=== PATIENT | male | born 1955 | race Caucasian/White ===

== ENCOUNTER 2018-01-12 15:30 | Observation (INO) | payer OTHER ==
[2018-01-12 15:35] VITALS: BMI 26.6
--- NOTE | 2018-01-12 15:53 | ED PDOC ---
Arrival/HPI - General Chief Complaint: Chest Pain Time Seen by Provider: 01/12/18 15:49 - History of Present Illness Narrative History of Present Illness (Text): 01/12/18 15:54 62 m with hx htn presents to the Emergency department with chief complaint of palpitations and shortness of breath. Patient states that his symptoms started approx 8am this morning and have been persistent throughout the day. Patient reports some associated lightheadedness but no chest pain/discomfort, no diaphoresis, no nausea. Patient states he recently returned from a trip to [facility]. No wheezing, no cough, no fever, no abdominal pain. Past Medical History - Infectious Disease Hx of Infectious Diseases: None - Tetanus Immunization Tetanus Immunization: Unknown - Cardiac Hx Hypertension: Yes - HEENT Hx HEENT Disorder: Yes (wears eyeglasses) - Musculoskeletal/Rheumatological Hx Falls: No - Psychiatric Hx Psychophysiologic Disorder: No Hx Substance Use: No - Past Surgical History Past Surgical History: No Previous - Suicidal Assessment Feels Threatened In Home Enviroment: No Family/Social History Family/Social History: No Known Family HX, Other (fhx negative for early myocardial infarction) Smoking Status: Light Smoker < 10 Cigarettes Daily Hx Alcohol Use: No (RECENT DETOX [place]) Hx Substance Use: No Hx Substance Use Treatment: No Allergies/Home Meds Allergies/Adverse Reactions: Allergies No Known Allergies Allergy (Verified 01/12/18 15:51) Home Medications: Home Meds Medication Instructions Recorded Confirmed RX: Losartan [Cozaar] 50 mg PO DAILY 07/27/11 01/12/18 amLODIPine [Norvasc] 10 mg PO DAILY 01/12/18 01/12/18 Review of Systems - Physician Review All systems were reviewed & negative as marked: Yes Physical Exam - Physical Exam Narrative Physical Exam (Text): 01/12/18 15:56 Gen: VS reviewed, alert, well developed, well nourished, nontoxic, mild distress Eye: EOMI, PERRL Neck: no JVD, supple, no adenopathy CV: rapid rate, regular rhythm, no rubs,no murmur, S1, S2 Pulm: no distress, clear to auscultation, no wheeze, no rhonchi, breath sounds equal, no rales Abd: soft, nontender, no guarding, no rebound, no rigidity Ext: no edema Skin: good color, no rash, no cyanosis Psych: responds appropriately to questions, normal affect Neuro: oriented x3, CN2-12 intact grossly, motor intact, sensation intact Vital Signs Temp Pulse Resp BP Pulse Ox 01/12/18 15:31 98.3 F 108 H 18 166/93 H 99 Medical Decision Making ED Course and Treatment: 01/12/18 15:58 patient informed to quit smoking, discussion less than 10 minutes 01/12/18 16:59 on repeat exam and discussion patient admits that he drinks alcohol daily, has gone through alcohol withdrawal but never seizures.last drink of alcohol was yesterday. CIWA score at this time = 2/3 01/12/18 18:00 on re-eval patient states he feels much better and symptoms have resolved after dose of ativan. 01/12/18 18:[address] dao to the hospitalist service. patient to be admitted for mild alcohol withdrawal. - EKG Interpretation EKG Interpretation (Text): 01/12/18 15:56 [id number]: sinus tachycardia at 111 bpm, nml qrs, nml axis, lvh, Interpreted by ED Physician: Yes Disposition/Present on Arrival - Present on Arrival Any Indicators Present on Arrival: No History of DVT/PE: No History of Uncontrolled Diabetes: No Urinary Catheter: No History of Decub. Ulcer: No History Surgical Site Infection Following: None - Disposition Have Diagnosis and Disposition been Completed?: Yes Diagnosis: Alcohol withdrawal syndrome Disposition: HOSPITALIZED Disposition Time: 18:24 Patient Plan: Observation Condition: STABLE Forms: [employer] ([place])
[2018-01-12] MEDS: Sodium Chloride 0.9% 1,000 ML IV SCH ×2 (16:17→23:57)
[2018-01-12 16:24] LABS: BASO # 0.03 K/mm3 (0.0-2.0); BASO % 0.6 % (0.0-3.0); EOS % 0.2 % (1.5-5.0); GRAN # 3.8 (1.4-6.5); GRAN % 70.5 % (50.0-68.0); HEMOGLOBIN 13.3 g/dL (14.0-18.0); LYMPH % 18.8 % (22.0-35.0); MEAN CELL VOLUME 94.1 fl (80.0-105.0); MEAN CORPUSCULAR HEMOGLOBIN 32.8 pg (25.0-35.0); MEAN CORPUSCULAR HGB CONC 34.8 g/dl (31.0-37.0); MEAN PLATELET VOLUME 9.6 fl (7.0-11.0); MONO # 0.5 (0.1-0.6); MONO % 9.9 % (1.0-6.0); RBC 4.06 10^6/uL (3.5-6.1); RED CELL DISTRIBUTION WIDTH 13.4 % (11.5-14.5); WHITE BLOOD COUNT 5.4 10^3/uL (4.5-11.0)
[2018-01-12 16:35] LABS: ALB/GLOB RATIO 1.2 (1.1-1.8); ALBUMIN 4.7 g/dL (3.0-4.8); ALT/SGPT 191 U/L (7-56); AST/SGOT 583 U/L (17-59); BLOOD UREA NITROGEN 23 mg/dL (7-21); CALCIUM 9.7 mg/dL (8.4-10.5); GFR NON-AFRICAN AMERICAN > 60
[2018-01-12 16:47] LABS: TROPONIN I 0.03 ng/mL
[2018-01-12 16:49] LABS: INR 0.95; PARTIAL THROMBOPLASTIN TIME 25.5 Seconds (25.1-36.5); PROTHROMBIN TIME 10.8 SECONDS (9.4-12.5)
--- NOTE | 2018-01-12 17:42 | CT ---
Date of service: 01/12/2018 PROCEDURE: CT Chest with contrast (Pulmonary Angiogram) HISTORY: pulmonary embolism COMPARISON: None available. TECHNIQUE: Axial computed tomography images were obtained of the chest in the pulmonary arterial phase of enhancement. Coronal and sagittal reformatted images were created and reviewed. Intravenous contrast dose: Radiation dose: Total exam DLP = 474.46 mGy-cm. This CT exam was performed using one or more of the following dose reduction techniques: Automated exposure control, adjustment of the mA and/or kV according to patient size, and/or use of iterative reconstruction technique. FINDINGS: PULMONARY ARTERIES: Examination is of suboptimal diagnostic quality for evaluation of pulmonary embolism due to missed bolus. Allowing for this, there are no filling defects in the central pulmonary arteries to suggest acute pulmonary embolism. AORTA: No acute findings. No thoracic aortic aneurysm. No aortic atherosclerotic calcification or mural plaque present. LUNGS: The lungs are well inflated and clear. No nodule, mass or pulmonary consolidation. PLEURAL SPACES: No effusion or pneumothorax. HEART: There is mild cardiomegaly. No significant pericardial effusion. LYMPH NODES: No pathologic mediastinal or hilar lymphadenopathy. BONES, CHEST WALL: Within normal limits for the patient's age. No fracture or destructive lesion multilevel degenerative changes in the spine. OTHER FINDINGS: Fatty liver. There is a small sliding hiatal hernia. Mild gynecomastia. IMPRESSION: Suboptimal diagnostic quality due to missed bolus. No CTA evidence for acute central pulmonary embolism. Clear lungs.
[2018-01-12] MEDS ORDERED: Multivitamin (MVI) 10 ML, Thiamine 100 MG, Folic Acid 1 MG in Sodium Chloride 0.9% 1,00... IV ONE (19:13)
--- NOTE | 2018-01-12 20:34 | CP.PCM.HP ---
History of Present Illness - History of Present Illness History of Present Illness: HISTORY & PHYSICAL NOTE FOR HOSPITALIST TEAM Wilian Ariza PGY-1 CC: Chest palpitations since this morning. Resolved upon interview 62 y/o M with PMHx of alcohol abuse, hypertension presents to ED with complaints of palpitations that had resolved by the time he was interviewed. He reports he started feeling the palpitations around 8am this am, without associated chest pain, shortness of breath, diaphoresis, pain radiating to arm, dizziness, nausea or vomiting. He reports that he has had these symptoms several times recently. He reports that he drinks about 1/2 liter of whiskey every day for the past few months and his last drink was last night. He reports that if he doesn't have a drink, he get the shakes. Upon interview, he denies 12 point ROS PMHx: Etoh abuse, HTN, palpitations, anxiety ALL: NKDA PSH: SH: 1/2 L daily of whiskey, 10 cigarettes/day x 20yrs. No drug use FH: Denies PMD: Dr. Presley Pharmacy: [facility] pharmacy Present on Admission - Present on Admission Any Indicators Present on Admission: No Review of Systems - Review of Systems Review of Systems: per HPI Past Patient History - Infectious Disease Hx of Infectious Diseases: None - Tetanus Immunizations Tetanus Immunization: Unknown - Past Social History Smoking Status: Light Smoker < 10 Cigarettes Daily - CARDIAC Hx Hypertension: Yes - HEENT Hx HEENT Problems: Yes (wears eyeglasses) - MUSCULOSKELETAL/RHEUMATOLOGICAL Hx Falls: No - PSYCHIATRIC Hx Psychophysiologic Disorder: No Hx Substance Use: No - SURGICAL HISTORY Hx Surgeries: No Meds Allergies/Adverse Reactions: Allergies Allergy/AdvReac Type Severity Reaction Status Date / Time No Known Allergies Allergy Verified 01/12/18 15:51 Physical Exam - Constitutional Appears: Well, Non-toxic, No Acute Distress - Head Exam Head Exam: ATRAUMATIC, NORMAL INSPECTION - Eye Exam Eye Exam: EOMI, Normal appearance - ENT Exam ENT Exam: Mucous Membranes Moist, Normal Exam - Neck Exam Neck exam: Positive for: Normal Inspection - Respiratory Exam Respiratory Exam: Clear to Auscultation Bilateral, NORMAL BREATHING PATTERN - Cardiovascular Exam Cardiovascular Exam: REGULAR RHYTHM, +S1, +S2 - GI/Abdominal Exam GI & Abdominal Exam: Normal Bowel Sounds, Soft - Rectal Exam Rectal Exam: NORMAL INSPECTION - Extremities Exam Extremities exam: Positive for: normal inspection. Negative for: calf tenderness - Back Exam Back exam: NORMAL INSPECTION - Neurological Exam Neurological exam: Alert, Oriented x3 - Psychiatric Exam Psychiatric exam: Normal Affect, Normal Mood - Skin Skin Exam: Dry, Intact, Warm Results - Vital Signs Recent Vital Signs: Last Vital Signs Temp 98.2 F 01/12/18 18:07 Pulse 102 H 01/12/18 19:38 Resp 18 01/12/18 19:38 BP 143/80 01/12/18 19:38 Pulse Ox 98 01/12/18 19:38 - Labs Result Diagrams: 01/12/18 16:17 01/12/18 16:17 Labs: Laboratory Results - last 24 hr 01/12/18 01/12/18 01/12/18 16:17 16:17 16:17 WBC 5.4 RBC 4.06 Hgb 13.3 L Hct 38.2 L MCV 94.1 MCH 32.8 MCHC 34.8 RDW 13.4 Plt Count 257 MPV 9.6 Gran % 70.5 H Lymph % (Auto) 18.8 L Bowie % (Auto) 9.9 H Eos % (Auto) 0.2 L Baso % (Auto) 0.6 Gran # 3.80 Lymph # (Auto) 1.0 L Bowie # (Auto) 0.5 Eos # (Auto) 0.0 Baso # (Auto) 0.03 PT 10.8 INR 0.95 APTT 25.5 Sodium 139 Potassium 4.2 Chloride 103 Carbon Dioxide 22 Anion Gap 18 BUN 23 H Creatinine 1.1 Est GFR ( Amer) > 60 Est GFR (Non-Af Amer) > 60 Random Glucose 145 H Calcium 9.7 Total Bilirubin 0.6 AST 583 H ALT 191 H Alkaline Phosphatase 117 Troponin I 0.03 D Total Protein 8.4 H Albumin 4.7 Globulin 3.7 Albumin/Globulin Ratio 1.2 TSH 3rd Generation Alcohol, Quantitative 01/12/18 01/12/18 16:17 18:15 WBC RBC Hgb Hct MCV MCH MCHC RDW Plt Count MPV Gran % Lymph % (Auto) Bowie % (Auto) Eos % (Auto) Baso % (Auto) Gran # Lymph # (Auto) Bowie # (Auto) Eos # (Auto) Baso # (Auto) PT INR APTT Sodium Potassium Chloride Carbon Dioxide Anion Gap BUN Creatinine Est GFR ( Amer) Est GFR (Non-Af Amer) Random Glucose Calcium Total Bilirubin AST ALT Alkaline Phosphatase Troponin I Total Protein Albumin Globulin Albumin/Globulin Ratio TSH 3rd Generation 0.79 Alcohol, Quantitative < 10 Assessment & Plan - Assessment and Plan (Free Text) Assessment: 62 y/o M with PMHx of ETOH abuse, HTN admitted for ETOH withdrawal. Plan: ETOH withdrawal Ativan 1mg q1h cristela, 2mg q6h prn Banana bag CIWA protocol Aspiration precautions Seizure precautions Neuro checks NPO Palpitations No EKG changes Trend troponins f/u TSH CTA negative for PE Transaminitis AST/ALT >2:1 Likely secondary to alcohol use f/u abdomen ultrasound Hx of HTN Lopressor IVP q8h Switch to home oral meds when tolerating PPx: Hep/protonix Case seen, examined and discussed with attending physician, Dr. Ray
[2018-01-12] MEDS: Metoprolol 1 mg/ml Inj IVP SCH (22:00)
[2018-01-12] MEDS ORDERED: Influenza Vaccine 60 mcg/0.5 mL SYR (4YR UP) IM ONE (23:09)
[2018-01-12] MEDS ORDERED: Pneumococcal 23-Valent Vaccine IM ONE (23:09)
[2018-01-13] MEDS ORDERED: Folic Acid 1 MG, Thiamine 100 MG, Multivitamin (MVI) 10 ML in Dextrose 5% In Water 1,00... IV SCH (04:00)
[2018-01-13 04:42] LABS: BARBITURATES, UR NEGATIVE (NEGATIVE); BENZODIAZEPINES, UR NEGATIVE (NEGATIVE); OPIATES, UR NEGATIVE (NEGATIVE); PHENCYCLIDINE, UR NEGATIVE (NEGATIVE)
[2018-01-13] MEDS: Metoprolol 1 mg/ml Inj IVP SCH (05:07)
--- NOTE | 2018-01-13 05:53 | CARD ---
APPROVED REPORT Date of service: 01/12/2018 EKG Measurement Heart [id number] <Conclusion> Sinus tachycardia Possible Left atrial enlargement Left ventricular hypertrophy Nonspecific ST-T abnormality Abnormal ECG
[2018-01-13 06:00] VITALS: BP 148/79; RESP 22; TEMP 98.7; O2SAT 99
[2018-01-13 07:26] LABS: BASO # 0.03 K/mm3 (0.0-2.0); BASO % 0.5 % (0.0-3.0); EOS # 0.1 (0.0-0.7); EOS % 1.3 % (1.5-5.0); GRAN # 2.67 (1.4-6.5); GRAN % 48.7 % (50.0-68.0); HEMOGLOBIN 12.2 g/dL (14.0-18.0); LYMPH # 2.1 (1.2-3.4); LYMPH % 37.7 % (22.0-35.0); MEAN CELL VOLUME 94.1 fl (80.0-105.0); MEAN CORPUSCULAR HEMOGLOBIN 31.4 pg (25.0-35.0); MEAN CORPUSCULAR HGB CONC 33.3 g/dl (31.0-37.0); MEAN PLATELET VOLUME 9.6 fl (7.0-11.0); MONO # 0.7 (0.1-0.6); MONO % 11.8 % (1.0-6.0); RBC 3.89 10^6/uL (3.5-6.1); RED CELL DISTRIBUTION WIDTH 13.5 % (11.5-14.5); WHITE BLOOD COUNT 5.5 10^3/uL (4.5-11.0)
[2018-01-13 08:00] LABS: ALB/GLOB RATIO 1.1 (1.1-1.8); ALBUMIN 3.9 g/dL (3.0-4.8); ALT/SGPT 118 U/L (7-56); AST/SGOT 177 U/L (17-59); BLOOD UREA NITROGEN 14 mg/dL (7-21); CALCIUM 9.1 mg/dL (8.4-10.5); GFR NON-AFRICAN AMERICAN > 60; TROPONIN I 0.03 ng/mL
[2018-01-13] MEDS ORDERED: Potassium Chloride 20 mEq ER Tab PO ONE (10:20)
[2018-01-13 10:57] VITALS: PULSE 81
--- NOTE | 2018-01-13 11:36 | CP.PCM.DIS ---
<Levy Munguia - Last Filed: 01/13/18 11:28> Provider - Provider Date of Admission: 01/12/18 18:21 Attending physician: Lisa Watkins DO Primary care physician: Dr. Hansen Consults: Cardiology: Dr. Jennings Time Spent in preparation of Discharge (in minutes): 47 Hospital Course - Lab Results Lab Results: Most Recent Lab Values WBC 5.5 10^3/uL (4.5-11.0) 01/13/18 07:00 RBC 3.89 10^6/uL (3.5-6.1) 01/13/18 07:00 Hgb 12.2 g/dL (14.0-18.0) L 01/13/18 07:00 Hct 36.6 % (42.0-52.0) L 01/13/18 07:00 MCV 94.1 fl (80.0-105.0) 01/13/18 07:00 MCH 31.4 pg (25.0-35.0) 01/13/18 07:00 MCHC 33.3 g/dl (31.0-37.0) 01/13/18 07:00 RDW 13.5 % (11.5-14.5) 01/13/18 07:00 Plt Count 223 10^3/uL (120.0-450.0) 01/13/18 07:00 MPV 9.6 fl (7.0-11.0) 01/13/18 07:00 Gran % 48.7 % (50.0-68.0) L 01/13/18 07:00 Lymph % (Auto) 37.7 % (22.0-35.0) H 01/13/18 07:00 Stokes % (Auto) 11.8 % (1.0-6.0) H 01/13/18 07:00 Eos % (Auto) 1.3 % (1.5-5.0) L 01/13/18 07:00 Baso % (Auto) 0.5 % (0.0-3.0) 01/13/18 07:00 Gran # 2.67 (1.4-6.5) 01/13/18 07:00 Lymph # (Auto) 2.1 (1.2-3.4) 01/13/18 07:00 Stokes # (Auto) 0.7 (0.1-0.6) H 01/13/18 07:00 Eos # (Auto) 0.1 (0.0-0.7) 01/13/18 07:00 Baso # (Auto) 0.03 K/mm3 (0.0-2.0) 01/13/18 07:00 PT 10.8 SECONDS (9.4-12.5) 01/12/18 16:17 INR 0.95 01/12/18 16:17 APTT 25.5 Seconds (25.1-36.5) 01/12/18 16:17 Sodium 137 mmol/L (132-148) 01/13/18 07:00 Potassium 3.5 mmol/L (3.6-5.0) L 01/13/18 07:00 Chloride 104 mmol/L (98-107) 01/13/18 07:00 Carbon Dioxide 26 mmol/L (21-33) 01/13/18 07:00 Anion Gap 10 (10-20) 01/13/18 07:00 BUN 14 mg/dL (7-21) 01/13/18 07:00 Creatinine 0.9 mg/dl (0.8-1.5) 01/13/18 07:00 Est GFR ( Amer) > 60 01/13/18 07:00 Est GFR (Non-Af Amer) > 60 01/13/18 07:00 Random Glucose 114 mg/dL (70-110) H 01/13/18 07:00 Calcium 9.1 mg/dL (8.4-10.5) 01/13/18 07:00 Phosphorus 3.1 mg/dL (2.5-4.5) 01/13/18 07:00 Magnesium 1.9 mg/dL (1.7-2.2) 01/13/18 07:00 Total Bilirubin 0.7 mg/dL (0.2-1.3) 01/13/18 07:00 AST 177 U/L (17-59) H D 01/13/18 07:00 ALT 118 U/L (7-56) H 01/13/18 07:00 Alkaline Phosphatase 99 U/L (38-126) 01/13/18 07:00 Troponin I 0.03 ng/mL D 01/13/18 07:00 Total Protein 7.2 g/dL (5.8-8.3) 01/13/18 07:00 Albumin 3.9 g/dL (3.0-4.8) 01/13/18 07:00 Globulin 3.4 gm/dL 01/13/18 07:00 Albumin/Globulin Ratio 1.1 (1.1-1.8) 01/13/18 07:00 TSH 3rd Generation 0.79 mIU/mL (0.46-4.68) 01/12/18 16:17 Urine Opiates Screen Negative (NEGATIVE) 01/13/18 03:10 Urine Methadone Screen Negative (NEGATIVE) 01/13/18 03:10 Ur Barbiturates Screen Negative (NEGATIVE) 01/13/18 03:10 Ur Phencyclidine Scrn Negative (NEGATIVE) 01/13/18 03:10 Ur Amphetamines Screen Negative (NEGATIVE) 01/13/18 03:10 U Benzodiazepines Scrn Negative (NEGATIVE) 01/13/18 03:10 U Oth Cocaine Metabols Negative (NEGATIVE) 01/13/18 03:10 U Cannabinoids Screen Negative (NEGATIVE) 01/13/18 03:10 Alcohol, Quantitative < 10 mg/dL (0-10) 01/12/18 18:15 - Hospital Course Hospital Course: 62 year old male with a past medical history significant for HTN, alcohol abuse, tobacco abuse, palpitations, and anxiety who presented with palpitations and alcohol withdrawal. An EKG in the ED showed sinus tachycardia. A Chest CT to r/o PE was done and showed no acute intrathoracic processes or pulmonary embolism. He had three serial troponins that were either negative or indeterminate. A TSH was within normal limits. He was started of IVP Lopressor PRN should he have continued tachycardia. Cardiology was consulted and stated that patient was safe for discharge to home with follow up as an outpatient for 2D echocardiogram and stress test. For his history of alcohol abuse he was started on IVP Ativan, IV banana bag and was put on CIWA assessments, all of which were 0. He was noted to have downtrending elevated LFT's that are likely secondary to both alcohol abuse and fatty liver (seen on chest CT). He was counseled on smoking and alcohol cessation as well as diet/exercise for fatty liver. He was discharged on 01/13/2018 with instructions as written below with no changes made to his home medications. - Date & Time of H&P Date of H&P: 01/12/18 Time of H&P: 20:53 Discharge Exam - Head Exam Head Exam: ATRAUMATIC, NORMAL INSPECTION - Eye Exam Eye Exam: EOMI, Normal appearance, PERRL Pupil Exam: NORMAL ACCOMODATION - ENT Exam ENT Exam: Mucous Membranes Moist, Normal Exam - Neck Exam Neck exam: Full Rom, Normal Inspection - Respiratory Exam Respiratory Exam: Clear to PA & Lateral, NORMAL BREATHING PATTERN, UNREMARKABLE - Cardiovascular Exam Cardiovascular Exam: REGULAR RHYTHM, RRR, +S1, +S2 - GI/Abdominal Exam GI & Abdominal Exam: Normal Bowel Sounds, Soft, Unremarkable - Extremities Exam Extremities exam: normal inspection - Neurological Exam Neurological exam: Alert, Oriented x3 - Psychiatric Exam Psychiatric exam: Normal Affect, Normal Mood - Skin Skin Exam: Dry, Intact, Normal Color, Warm Discharge Plan - Follow Up Plan Condition: STABLE Disposition: HOME/ ROUTINE Instructions: Quitting Smoking, Alcohol Abuse and Alcoholism (DC), Cardioversion (DC) Additional Instructions: Please follow up with your primary care doctor, Dr. Hansen, within 3-5 days of being discharged from the hospital. You will need repeat blood work to follow your liver numbers which are elevated. Please discuss all medical issues addres sed during your admission. Please follow up with the hydrological technical officer (heart doctor) that saw you during your admission, Dr. Jennings, within one week as he has recommended that you have a 2D Echocardiogram and Stress Test as an outpatient with him in his office. His contact information has been provided in this paperwork. Please stop smoking tobacco and drinking alcohol as discussed as these are detr imental to your health. Please continue taking all home medications as previously prescribed, as no changes have been made to these during your admission. If your symptoms return, please seek emergency medical attention immediately. Referrals: Ruben Hansen MD [Family Provider] - Yasmin Jennings MD [Staff Provider] - <Lisa Watkins - Last Filed: 01/17/18 16:20> Provider - Provider Date of Admission: 01/12/18 18:21 Attending physician: Lisa Watkins, Hospital Course - Lab Results Lab Results: Most Recent Lab Values WBC 5.5 10^3/uL (4.5-11.0) 01/13/18 07:00 RBC 3.89 10^6/uL (3.5-6.1) 01/13/18 07:00 Hgb 12.2 g/dL (14.0-18.0) L 01/13/18 07:00 Hct 36.6 % (42.0-52.0) L 01/13/18 07:00 MCV 94.1 fl (80.0-105.0) 01/13/18 07:00 MCH 31.4 pg (25.0-35.0) 01/13/18 07:00 MCHC 33.3 g/dl (31.0-37.0) 01/13/18 07:00 RDW 13.5 % (11.5-14.5) 01/13/18 07:00 Plt Count 223 10^3/uL (120.0-450.0) 01/13/18 07:00 MPV 9.6 fl (7.0-11.0) 01/13/18 07:00 Gran % 48.7 % (50.0-68.0) L 01/13/18 07:00 Lymph % (Auto) 37.7 % (22.0-35.0) H 01/13/18 07:00 Stokes % (Auto) 11.8 % (1.0-6.0) H 01/13/18 07:00 Eos % (Auto) 1.3 % (1.5-5.0) L 01/13/18 07:00 Baso % (Auto) 0.5 % (0.0-3.0) 01/13/18 07:00 Gran # 2.67 (1.4-6.5) 01/13/18 07:00 Lymph # (Auto) 2.1 (1.2-3.4) 01/13/18 07:00 Stokes # (Auto) 0.7 (0.1-0.6) H 01/13/18 07:00 Eos # (Auto) 0.1 (0.0-0.7) 01/13/18 07:00 Baso # (Auto) 0.03 K/mm3 (0.0-2.0) 01/13/18 07:00 PT 10.8 SECONDS (9.4-12.5) 01/12/18 16:17 INR 0.95 01/12/18 16:17 APTT 25.5 Seconds (25.1-36.5) 01/12/18 16:17 Sodium 137 mmol/L (132-148) 01/13/18 07:00 Potassium 3.5 mmol/L (3.6-5.0) L 01/13/18 07:00 Chloride 104 mmol/L (98-107) 01/13/18 07:00 Carbon Dioxide 26 mmol/L (21-33) 01/13/18 07:00 Anion Gap 10 (10-20) 01/13/18 07:00 BUN 14 mg/dL (7-21) 01/13/18 07:00 Creatinine 0.9 mg/dl (0.8-1.5) 01/13/18 07:00 Est GFR ( Amer) > 60 01/13/18 07:00 Est GFR (Non-Af Amer) > 60 01/13/18 07:00 Random Glucose 114 mg/dL (70-110) H 01/13/18 07:00 Calcium 9.1 mg/dL (8.4-10.5) 01/13/18 07:00 Phosphorus 3.1 mg/dL (2.5-4.5) 01/13/18 07:00 Magnesium 1.9 mg/dL (1.7-2.2) 01/13/18 07:00 Total Bilirubin 0.7 mg/dL (0.2-1.3) 01/13/18 07:00 AST 177 U/L (17-59) H D 01/13/18 07:00 ALT 118 U/L (7-56) H 01/13/18 07:00 Alkaline Phosphatase 99 U/L (38-126) 01/13/18 07:00 Troponin I 0.03 ng/mL D 01/13/18 07:00 Total Protein 7.2 g/dL (5.8-8.3) 01/13/18 07:00 Albumin 3.9 g/dL (3.0-4.8) 01/13/18 07:00 Globulin 3.4 gm/dL 01/13/18 07:00 Albumin/Globulin Ratio 1.1 (1.1-1.8) 01/13/18 07:00 TSH 3rd Generation 0.79 mIU/mL (0.46-4.68) 01/12/18 16:17 Urine Opiates Screen Negative (NEGATIVE) 01/13/18 03:10 Urine Methadone Screen Negative (NEGATIVE) 01/13/18 03:10 Ur Barbiturates Screen Negative (NEGATIVE) 01/13/18 03:10 Ur Phencyclidine Scrn Negative (NEGATIVE) 01/13/18 03:10 Ur Amphetamines Screen Negative (NEGATIVE) 01/13/18 03:10 U Benzodiazepines Scrn Negative (NEGATIVE) 01/13/18 03:10 U Oth Cocaine Metabols Negative (NEGATIVE) 01/13/18 03:10 U Cannabinoids Screen Negative (NEGATIVE) 01/13/18 03:10 Alcohol, Quantitative < 10 mg/dL (0-10) 01/12/18 18:15 Attending/Attestation - Attestation I have personally seen and examined this patient.: Yes I have fully participated in the care of the patient.: Yes I have reviewed all pertinent clinical information, including history, physical exam and plan: Yes Notes (Text): Patient seen and examined by me with resident at 9:20AM on 01/13/18. Case including discharge plan discussed with resident. Agree with above with following additions/corrections. Patient is a 62 year old male with past medical history significant for alcohol abuse and hypertension that presented to the emergency room with complaints of palpitations which resolved in the emergency room. Please see H&P for full details. Patient was admitted with alcohol withdrawal, palpitations, transaminits, and hypertension. Patient was placed on CIWA protocol. Patient was placed on banana bag. CTA chest per radiologist showed no CTA evidence for acute central pulmonary embolism, clear lungs. Patients palpitations resolved. Patient was seen by cardiology who recommended outpatient echo and stress test as patient wanted to go home. Patient was scoring a zero on the CIWA protocol. Troponins were within normal limits. TSH was within normal limits. LFTS were improving. Heart rate was within normal limits. Patient was cleared for discharge by cardiology. Patient was discharged home. On day of discharge, patient stated he was feeling much better and wanted to go home. No chest pain. No shortness of breath or palpitations. No nausea, vomiting, or abdominal pain. No headaches or dizziness. No lightheadedness. No change in vision. No dysuria. No fevers or chills. No diarrhea or constipation. Physical exam: General: Awake and alert lying in bed in no acute distress HEENT: Normocephalic, atraumatic. Extraocular muscles intact, pupils equal and reactive, no scleral icterus. Oropharynx is pink and moist. Neck is supple. Cardiovascular: Regular rhythm. Normal S1 and S2. No murmurs, rubs, or gallops appreciated Pulmonary: Normal respiratory effort. No rhonchi, rales, or wheezing appreciated. Gastrointestinal: Soft, nondistended. Nontender. Positive bowel sounds all 4 quadrants. No guarding. Musculoskeletal: Moves all extremities. No calf tenderness. No CVA tenderness. Central nervous system: AAO x3, CN 2-12 grossly intact. Dermatologic: Skin warm and dry. Please see chart for full details. Follow up instructions: Patient to follow up with primary care doctor within 3-5 days. Patient to follow up with hydrological technical officer within one week for echo and stress test. Patient to stop alcohol and tobacco abuse. All instructions explained to the patient in detail. Patient both understands and agrees to all instructions. Written instructions also given. Time spent in discharging the patient including chart review, medication reconciliation, discussion with the patient, medical videographer, consultants, and nursing staff was 35 minutes.
--- NOTE | 2018-01-13 18:17 | CON ---
DATE: 01/13/2018 LOCATION: The patient is in room 277, bed 1. REASON FOR CONSULTATION: Palpitation, hypertension, and alcohol abuse. HISTORY OF PRESENT ILLNESS: The patient is a 62-year-old male admitted with a history that he was having palpitation off and on recently, but denied any chest pain, shortness of breath, or palpitation. He has history of alcohol abuse, drinks half liter of whiskey every day, and smokes 8 to 10 cigarettes a day, and now, the patient is lying flat in bed without any chest pain, shortness of breath, or palpitation. PAST MEDICAL HISTORY: Positive for hypertension, alcohol abuse, and history of anxiety. PERSONAL HISTORY: As mentioned before. The patient drinks a pint of whiskey daily and smokes 8 to 10 cigarettes a day. ALLERGIES: DENIES ALLERGIES. FAMILY HISTORY: Not significant. MEDICATIONS: The patient's list of home medication: The patient was on Norvasc 10 mg daily, losartan 50 mg daily. REVIEW OF SYSTEMS: All the systems are reviewed, positives mentioned in history, otherwise, negative. PHYSICAL EXAMINATION: VITAL SIGNS: Blood pressure 140/79, respirations 22, pulse 76, and temperature 98.7. HEENT: Head is normocephalic. Eyes, pupils normal. Conjunctivae are normal. Nose and throat normal. NECK: JVP low. Carotid equal. THORAX: AP diameter normal. LUNGS: Clear. CARDIOVASCULAR: S1, S2. ABDOMEN: Soft, nontender. No organomegaly. Bowel sounds are normal. EXTREMITIES: No clubbing. No cyanosis. LABORATORY DATA: Labs show a WBC of 5.5, hemoglobin 12.2, hematocrit 36.6, and platelets 223. Sodium 137, potassium 3.5, BUN 14, creatinine 0.9. AST 177, ALT 118, troponins x3 negative. Total protein and albumin, normal. TSH 0.79. IMAGING: Chest CT, suboptimal diagnostic quality due to missed bolus. No CTA evidence for acute central pulmonary embolism. EKG showed sinus tachycardia, 111 per minute, possible left atrial enlargement, nonspecific ST-T changes. DIAGNOSES: Palpitation. Alcohol abuse. The patient stated if he does not drink, he gets shakes with possible delirium tremens, hypertension, hypokalemia, and hepatic dysfunction due to alcohol abuse. PLAN: Advised the patient to stop smoking, stop drinking. We will give K-Dur 40 p.o. today, and we will do repeat SMA-7 and lipid profile in the morning. The patient does not want to stay in the hospital. He wants to go home, and if the patient goes home, we will do echo and a nuclear stress test as outpatient. I advised him, the patient in the meantime getting IV therapy, heparin 5000 units subcutaneously every 12 hours. We will give potassium 40 p.o. stat. The patient is also on Protonix 40 IV daily. We will follow with you. If the patient goes home, we will do echo and nuclear stress test as an outpatient. Yasmin Jennings MD
== END 2018-01-13 12:46 | disposition home or self-care (01) ==
LOC: ED 15:30 → ERH 18:21 → 2RSO 20:52
PROVIDERS: ADMIT Hospitalist; ATTEND Hospitalist
DX: F10.239 Alcohol dependence with withdrawal, unspecified (principal); K76.0 Fatty (change of) liver, not elsewhere classified; I10 Essential (primary) hypertension; E87.6 Hypokalemia; F17.210 Nicotine dependence, cigarettes, uncomplicated; R00.2 Palpitations; Y90.0 Blood alcohol level of less than 20 mg/100 ml
CPT/HCPCS: 36415; 71275; 80053; 80320; 80324; 80345; 80346; 80349; 80353; 80358; 80361; 83735; 83992; 84100; 84443; 84484; 85025; 85610; 85730; 93005; 96361; 96372; 96374; 96375; 96376; 99285; C9113; G0378; J1644; J2060; J3411; J7030; J7070; Q9967

== ENCOUNTER 2018-01-13 23:56 | Emergency (ER) | payer OTHER ==
[2018-01-14 00:17] VITALS: BMI 26.7
[2018-01-14 00:20] VITALS: RESP 16
--- NOTE | 2018-01-14 00:23 | ED PDOC ---
Arrival/HPI - General Chief Complaint: Psychiatric Evaluation Time Seen by Provider: 01/13/18 23:59 Historian: Patient - History of Present Illness Narrative History of Present Illness (Text): 01/14/18 00:23 62 year old male, whose past medical history includes hypertension, history of palpitations, anxiety, and alcohol abuse, presents to the emergency department complaining of depression. Patient states he was recently discharged yesterday for palpitations which have not reoccurred, but once he got home he began feeling depressed. He states his sister recently and his daughter was not able to come home for Thanksgiving so he is feeling depressed. Patient denies any history of depression, or any psych history. He states he wanted to come in because he felt like he needed to get out of his house before he does something stupid like drink too much. He admits to having one drink today, but denies any drug use. Patient denies any fever, chills, chest pain, shortness of breath, nausea, vomiting, diarrhea, urinary symptoms, back pain, neck pain, headache, dizziness, suicidal/homicidal ideation, or any other complaints. PMD: Dr. Hansen Symptom Onset: Gradual Symptom Course: Unchanged Activities at Onset: Light Context: Home Past Medical History - Provider Review Nursing Documentation Reviewed: Yes - Infectious Disease Hx of Infectious Diseases: None - Tetanus Immunization Tetanus Immunization: Unknown - Cardiac Hx Cardiac Disorders: Yes Hx Hypertension: Yes - Pulmonary Hx Respiratory Disorders: No - Neurological Hx Neurological Disorder: No - HEENT Hx HEENT Disorder: Yes (wears eyeglasses) - Renal Hx Renal Disorder: No - Endocrine/Metabolic Hx Endocrine Disorders: No - Hematological/Oncological Hx Blood Disorders: No - Integumentary Hx Dermatological Disorder: No - Musculoskeletal/Rheumatological Hx Musculoskeletal Disorders: Yes Hx Back Pain: Yes (chronic) Hx Falls: No - Gastrointestinal Hx Gastrointestinal Disorders: No - Genitourinary/Gynecological Hx Genitourinary Disorders: No - Psychiatric Hx Psychophysiologic Disorder: No Hx Substance Use: No Other/Comment: had detox treatment about 3 yrs ago did not drink for 1 year started drinking 1/2 pt whiskey every other day 2 yrs ago - Past Surgical History Past Surgical History: No Previous - Anesthesia Hx Anesthesia: Yes - Suicidal Assessment Feels Threatened In Home Enviroment: No Family/Social History - Physician Review Nursing Documentation Reviewed: Yes Family/Social History: No Known Family HX Smoking Status: Light Smoker < 10 Cigarettes Daily Hx Alcohol Use: Yes (every other day 1/2 pt alexxnena) Hx Substance Use: No Hx Substance Use Treatment: No Allergies/Home Meds Allergies/Adverse Reactions: Allergies No Known Allergies Allergy (Verified 01/14/18 00:16) Home Medications: Home Meds Medication Instructions Recorded Confirmed RX: Losartan [Cozaar] 50 mg PO DAILY 07/27/11 01/14/18 RX: amLODIPine [Norvasc] 10 mg PO DAILY 01/12/18 01/14/18 Review of Systems - Physician Review All systems were reviewed & negative as marked: Yes - Review of Systems Constitutional: absent: Fevers, Other (Chills) Respiratory: absent: SOB Cardiovascular: absent: Chest Pain, Palpitations Gastrointestinal: absent: Diarrhea, Nausea, Vomiting Genitourinary Male: absent: Dysuria, Frequency, Hematuria Musculoskeletal: absent: Back Pain, Neck Pain Neurological: absent: Headache, Dizziness Psychiatric: Depression. absent: Suicidal Ideation (/homicidal ideation) Physical Exam Vital Signs Reviewed: Yes Vital Signs Temp Pulse Resp BP Pulse Ox 01/14/18 00:19 97.7 F 84 16 134/81 100 Temperature: Afebrile Blood Pressure: Normal Pulse: Regular Respiratory Rate: Normal Appearance: Positive for: Well-Appearing, Non-Toxic, Comfortable Pain Distress: None Mental Status: Positive for: Alert and Oriented X 3 - Systems Exam Head: Present: Atraumatic, Normocephalic Pupils: Present: PERRL Extroacular Muscles: Present: EOMI Conjunctiva: Present: Normal Mouth: Present: Moist Mucous Membranes Neck: Present: Normal Range of Motion Respiratory/Chest: Present: Clear to Auscultation, Good Air Exchange. No: Respiratory Distress, Accessory Muscle Use Cardiovascular: Present: Regular Rate and Rhythm, Normal S1, S2. No: Murmurs Abdomen: No: Tenderness, Distention, Peritoneal Signs Back: Present: Normal Inspection Upper Extremity: Present: Normal Inspection. No: Cyanosis, Edema Lower Extremity: Present: Normal Inspection. No: Edema Neurological: Present: GCS=15, CN II-XII Intact, Speech Normal Skin: Present: Warm, Dry, Normal Color. No: Rashes Psychiatric: Present: Alert, Oriented x 3, Normal Insight, Normal Concentration Medical Decision Making ED Course and Treatment: 01/14/18 00:23 Impression: 62 year old male presents complaining of feeling depressed, but denies any SI or HI. Plan: -- Labs -- Urinalysis -- Reassess and disposition Prior Visits: Notes and results from previous visits were reviewed. Progress Notes: 01/14/18 01:04 EKG shows Sinus Rhythm at 84 BPM with occasional PACs, normal interval, normal axis. Interpreted by me. 01/14/18 04:06 PES seen and evaluated patient. Cleared patient for discharged and will refer patient for outpatient followup. Patient is in no acute distress. Patient in agreement with plan to be discharged home. Patient is stable for discharge. - Lab Interpretations I have reviewed the lab results: Yes - Scribe Statement The provider has reviewed the documentation as recorded by the Johnibe Norman Ponce Provider Scribe Attestation: All medical record entries made by the Scribe were at my direction and personally dictated by me. I have reviewed the chart and agree that the record accurately reflects my personal performance of the history, physical exam, medical decision making, and the department course for this patient. I have also personally directed, reviewed, and agree with the discharge instructions and disposition. Disposition/Present on Arrival - Present on Arrival Any Indicators Present on Arrival: No History of DVT/PE: No History of Uncontrolled Diabetes: No Urinary Catheter: No History of Decub. Ulcer: No History Surgical Site Infection Following: None - Disposition Have Diagnosis and Disposition been Completed?: Yes Diagnosis: Depression Disposition: HOME/ ROUTINE Disposition Time: 04:10 Patient Plan: Discharge Patient Problems: Current Active Problems Problem Status Onset Depression Acute Condition: STABLE Discharge Instructions (ExitCare): Depression, Adult (DC) Additional Instructions: RUSSELL CHESTER, thank you for letting us take care of you today. Your provider was Rehana Tabor MD and you were treated for DEPRESSION, HEART. The emergency medical care you received today was directed at your acute symptoms. If you were prescribed any medication, please fill it and take as directed. It may take several days for your symptoms to resolve. Return to the Emergency Department if your symptoms worsen, do not improve, or if you have any other problems. Please contact your doctor or call one of the physicians/clinics you have been referred to that are listed on the Patient Visit Information form that is included in your discharge packet. Bring any paperwork you were given at discharge with you along with any medications you are taking to your follow up visit. Our treatment cannot replace ongoing medical care by a primary care provider outside of the emergency department. Thank you for allowing the [facility] team to be part of your care today. If you had an X-Ray or CT scan: A Radiologist will review the ED reading if any change in treatment is needed we will contact you. If you had a blood, urine, or wound culture: It will take several days for the results, if any change in treatment is needed we will contact you. If you had an STI test: It will take 48 hours for the results. Please call after 1 week if you have not heard back. Referrals: Ruben Hansen MD [Primary Care Provider] - Follow up with primary Forms: [employer] ([place]gian)
[2018-01-14 01:30] LABS: URINE BILIRUBIN NEGATIVE (NEGATIVE); URINE BLOOD NEGATIVE (NEGATIVE); URINE GLUCOSE (UA) NEGATIVE (NEGATIVE); URINE LEUKOCYTE ESTERASE NEGATIVE Leu/uL (NEGATIVE); URINE PROTEIN NEGATIVE mg/dL (<30 mg/dL); URINE UROBILINOGEN 0.2 E.U./dL (<1 E.U./dL)
[2018-01-14 01:31] LABS: BASO # 0.02 K/mm3 (0.0-2.0); BASO % 0.4 % (0.0-3.0); EOS # 0.1 (0.0-0.7); EOS % 2.2 % (1.5-5.0); GRAN % 39.9 % (50.0-68.0); HEMOGLOBIN 13.1 g/dL (14.0-18.0); LYMPH # 2.4 (1.2-3.4); LYMPH % 48.3 % (22.0-35.0); MEAN CORPUSCULAR HEMOGLOBIN 32.6 pg (25.0-35.0); MEAN CORPUSCULAR HGB CONC 34.7 g/dl (31.0-37.0); MEAN PLATELET VOLUME 9.7 fl (7.0-11.0); MONO # 0.5 (0.1-0.6); MONO % 9.2 % (1.0-6.0); RBC 4.02 10^6/uL (3.5-6.1); RED CELL DISTRIBUTION WIDTH 13.3 % (11.5-14.5)
[2018-01-14 01:33] LABS: URINE APPEARANCE CLEAR (CLEAR); URINE COLOR YELLOW (YELLOW)
[2018-01-14 01:42] LABS: ACETAMINOPHEN < 10.0 ug/ml (10.0-20.0); SALICYLATE < 1 mg/dL (2.0-20.0)
[2018-01-14 01:46] LABS: ALB/GLOB RATIO 1.2 (1.1-1.8); ALBUMIN 4.4 g/dL (3.0-4.8); ALT/SGPT 90 U/L (7-56); AST/SGOT 113 U/L (17-59); BLOOD UREA NITROGEN 8 mg/dL (7-21); CALCIUM 9.7 mg/dL (8.4-10.5); GFR NON-AFRICAN AMERICAN > 60
[2018-01-14 02:28] LABS: BARBITURATES, UR NEGATIVE (NEGATIVE); BENZODIAZEPINES, UR NEGATIVE (NEGATIVE); OPIATES, UR NEGATIVE (NEGATIVE); PHENCYCLIDINE, UR NEGATIVE (NEGATIVE)
[2018-01-14 04:32] VITALS: BP 127/82; PULSE 88; TEMP 98.2; O2SAT 98
--- NOTE | 2018-01-14 09:06 | CARD ---
APPROVED REPORT Date of service: 01/14/2018 EKG Measurement Heart [id number] <Conclusion> Sinus rhythm with premature atrial complexes, new Possible Left atrial enlargement Left ventricular hypertrophy Nonspecific T wave abnormality
== END 2018-01-14 04:30 | disposition home or self-care (01) ==
LOC: ED 23:56
DX: F32.9 Major depressive disorder, single episode, unspecified (principal); I10 Essential (primary) hypertension; F41.9 Anxiety disorder, unspecified; F17.210 Nicotine dependence, cigarettes, uncomplicated